=== PATIENT | male | born 1945 | race African-American/Black ===

== ENCOUNTER → 2019-06-25 | Emergency (ER) | payer SELFPAY ==
[~2019-06-25] VITALS: Ht 175.3 cm; Wt 136.1 kg
[~2019-06-25] MED LIST: CALCIUM CHLOR(10%) 100MG/ML 10ML SYRINGE IV ONE; EPINEPHrine HCL 1 MG/10 ML SYRG IV ONE; ETOMIDATE (2MG/ML) 20ML VIAL IV ONE; LIDOCAINE HCL 100 MG/5ML (2%) SYRG INJ IV ONE; MIDAZOLAM DRIP 50 mg/50mL 50 ML IV ONE; MIDAZOLAM DRIP 50 mg/50mL 50 ML IV SCH; SODIUM BICARBONATE 8.4% INJ 50ML SYRINGE IV ONE; SUCCINYLCHOLINE CHLORIDE 20 MG/ML 10ML VIAL IV ONE
[2019-06-25 21:36] VITALS: BP 131/62
== END | disposition home or self-care (01) ==
LOC: EDBD 20:55 → ER 21:02
DX: I46.9 Cardiac arrest, cause unspecified (principal); E11.9 Type 2 diabetes mellitus without complications; I10 Essential (primary) hypertension
CPT/HCPCS: 31500; 92950; 99291; J0171; J0330; J2250; 94002; 99152; 99153